=== PATIENT | female | born 1965 | race Asian ===

== ENCOUNTER → 2017-08-23 | Outpatient (CLI) | payer OTHER ==
--- NOTE | 2017-08-23 16:42 | KCIC ---
Bilateral digital screening mammogram History: Annual screening mammography Comparison: September 20, 2015 and August 15, 2014 Findings: Breast Tissue Density C : The breasts are heterogeneously dense, which may obscure small masses. Bilateral digital mammogram images are obtained with CAD. No suspicious masses, architectural distortion, or grouped microcalcifications are identified. Impression: Negative exam. Recommend screening mammography in one year. BI-RADS Category 1: Negative. PQRS compliance statement - Patient information was entered into a reminder system with a target due date for the next mammogram. Electronically signed by: Antionette Gibson MD (08/23/2017 4:39 PM) [facility]
== END | disposition home or self-care (01) ==
LOC: KCIC MAMMO 10:19
PROVIDERS: ATTEND Obstetrics & Gynecology
DX: Z12.31 Encounter for screening mammogram for malignant neoplasm of breast (principal)
CPT/HCPCS: G0202; 77067

== ENCOUNTER → 2017-11-03 | Outpatient (CLI) | payer OTHER | END | disposition home or self-care (01) | LOC: KCIC 14:31 | DX: M25.551 Pain in right hip (principal); G89.29 Other chronic pain | CPT/HCPCS: 73502 ==

== ENCOUNTER → 2017-11-26 | Outpatient (CLI) | payer OTHER | END | disposition home or self-care (01) | LOC: US 15:36 | DX: N30.00 Acute cystitis without hematuria (principal); N28.1 Cyst of kidney, acquired | CPT/HCPCS: 76770 ==

== ENCOUNTER → 2018-01-20 | Outpatient (CLI) | payer OTHER ==
[2018-01-20 15:31] LABS: BILIRUBIN,URINE NEGATIVE (NEG); CLARITY,URINE CLEAR; COLOR,URINE YELLOW; GLUCOSE,URINE NEGATIVE (NEG); NITRITE,URINE NEGATIVE (NEG); PROTEIN,URINE NEGATIVE (NEG-TRACE)
[2018-01-20 15:46] LABS: BACTERIA,URINE 0 /HPF (0-FEW); WBC,URINE OCC /HPF (0-4)
[2018-01-20 15:47] LABS: SQUAMOUS EPITHELIAL CELL,UR OCC /LPF
[2018-01-20 15:54] LABS: ADD MAN DIFF? NO
[2018-01-20 15:56] LABS: BASO # 0.1 x10^3/uL (0.0-0.2); BASO % 1 % (0-3); EOS # 0.5 x10^3/uL (0.0-0.7); EOS % 7 % (0-3); HEMATOCRIT 39.7 % (36.0-47.0); HEMOGLOBIN 13.5 g/dL (12.0-15.5); LYMPH # 1.5 x10^3/uL (1.0-4.8); LYMPH % 22 % (24-48); MEAN CORPUSCULAR HEMOGLOBIN 32 pg (25-35); MEAN CORPUSCULAR HGB CONC 34 g/dL (31-37); MEAN CORPUSCULAR VOLUME 94 fL (79-100); MONO # 0.6 x10^3/uL (0.0-1.1); MONO % 8 % (0-9); NEUT # 4.4 x10^3uL (1.8-7.7); NEUT % 62 % (31-73); PLATELET COUNT 367 x10^3/uL (140-400); RED CELL DISTRIBUTION WIDTH 13.9 % (11.5-14.5)
[2018-01-20 16:24] LABS: ALBUMIN 3.1 g/dL (3.4-5.0); ALBUMIN/GLOBULIN RATIO 0.7 (1.0-1.7); ALK PHOS 73 U/L (46-116); ALT (SGPT) 32 U/L (14-59); ANION GAP 8 (6-14); AST (SGOT) 26 U/L (15-37); BLOOD UREA NITROGEN 17 mg/dL (7-20); BUN/CREATININE RATIO 19 (6-20); CALCIUM 8.5 mg/dL (8.5-10.1); CARBON DIOXIDE 26 mmol/L (21-32); CHLORIDE 106 mmol/L (98-107); CREATININE 0.9 mg/dL (0.6-1.0); GFR 66.3; GLUCOSE 84 mg/dL (70-99); POTASSIUM 3.8 mmol/L (3.5-5.1); SODIUM 140 mmol/L (136-145); TOTAL BILIRUBIN 0.4 mg/dL (0.2-1.0); TOTAL PROTEIN 7.6 g/dL (6.4-8.2)
== END | disposition home or self-care (01) ==
LOC: SURGPAT 14:35
DX: Z01.818 Encounter for other preprocedural examination (principal)
CPT/HCPCS: 36415; 71046; 80053; 81001; 85025; 93005

== ENCOUNTER 2018-01-26 05:56 | Observation (INO) | payer OTHER ==
[2018-01-26] MEDS ORDERED: ESTROGENS, CONJ VAGINAL CREAM 30GM TUBE. (06:10)
[2018-01-26] MEDS ORDERED: METHYLENE BLUE 1% 10 ML VIAL. (06:10)
[2018-01-26] MEDS ORDERED: DEXAMETHASONE SOD PHOS 20 MG/5 ML VIAL. (06:21)
[2018-01-26] MEDS ORDERED: ONDANSETRON PF 4 MG/2 ML VIAL. (06:21)
[2018-01-26] MEDS ORDERED: ROCURONIUM 50 MG/5 ML VIAL. (06:22)
[2018-01-26] MEDS ORDERED: LIDOCAINE 2% PF Vial for OR 5 ML VIAL. (06:22)
[2018-01-26] MEDS ORDERED: PROPOFOL 20 ML IV (06:22)
[2018-01-26] MEDS ORDERED: fentaNYL PF VIAL 100 MCG/2 ML VIAL ×2 (06:22→09:12)
[2018-01-26] MEDS: IV RINGERS,LACTATED 1000ML 1,000 ML IV (06:33)
[2018-01-26 06:39] LABS: NEG OBC UR NEG; POS OBC UR POS; U PREG PATIENT NEGATIVE (NEG)
[2018-01-26] MEDS ORDERED: LIDOCAINE 1% PF 2 ML VIAL. ID (07:00)
[2018-01-26] MEDS ORDERED: HYDROmorphone 2 MG/ML VIAL IV (07:00)
[2018-01-26] MEDS ORDERED: MORPHINE SULFATE 4 MG/ML DISP.SYRIN. IV ×2 (07:00→09:30)
[2018-01-26] MEDS ORDERED: ONDANSETRON PF 4 MG/2 ML VIAL. IV ×2 (07:00→09:30)
[2018-01-26] MEDS ORDERED: fentaNYL PF VIAL 100 MCG/2 ML VIAL IV (07:00)
[2018-01-26] MEDS ORDERED: MIDAZOLAM HCL/PF 2 MG/2 ML VIAL. (07:17)
[2018-01-26] MEDS ORDERED: GLYCOPYRROLATE 1 MG/5 ML VIAL. (07:56)
[2018-01-26] MEDS: BUPIVACAINE-EPI 0.25%-1:200000 50 ML VIAL. (07:57)
[2018-01-26] MEDS ORDERED: ceFAZolin 2GM PREMIX 2 GM/50 ML BAG IV (08:00)
[2018-01-26] MEDS ORDERED: NEOSTIGMINE METHYLSULFATE 5 MG/5 ML SYRINGE. (08:12)
[2018-01-26] MEDS ORDERED: PHENYLEPHRINE in 0.9% NACL PF 1 MG/10 ML SYRINGE. IV (08:12)
[2018-01-26] MEDS ORDERED: ePHEDrine PF IN SALINE 50 MG/5 ML DISP.SYRIN IV (08:27)
[2018-01-26] MEDS ORDERED: SEVOFLURANE 61 TO 120 MINUTES. IH (08:31)
[2018-01-26] MEDS ORDERED: KETOROLAC 30 MG/ML INJ FOR OR. INJ (08:31)
[2018-01-26] MEDS ORDERED: SIMETHICONE 80 MG TAB.CHEW PO (09:30)
[2018-01-26] MEDS ORDERED: MAGNESIUM HYDROXIDE 2,400 MG/30 ML ORAL.SUSP. PO (09:30)
[2018-01-26] MEDS ORDERED: HYDROcodone/APAP 5/325MG 1 TAB TABLET PO (09:30)
[2018-01-26] MEDS ORDERED: diphenhydrAMINE 50 MG/ML VIAL IV (09:30)
[2018-01-26] MEDS ORDERED: CALCIUM CARBONATE 500 MG TAB.CHEW PO (09:30)
[2018-01-26] MEDS ORDERED: ZOLPIDEM 5 MG TABLET. PO (09:30)
[2018-01-26] MEDS ORDERED: NALOXONE 0.4 MG/ML VIAL. IV (09:30)
[2018-01-26] MEDS ORDERED: oxyCODONE/APAP 5/325 1 TAB TABLET PO (09:30)
[2018-01-26] MEDS ORDERED: diphenhydrAMINE HCL 25 MG CAPSULE PO (09:30)
[2018-01-26] MEDS ORDERED: KETOROLAC 30 MG/ML INJ. IV (09:30)
[2018-01-26] MEDS ORDERED: LACTULOSE 20 GM/30 ML SOLUTION. PO (09:30)
[2018-01-26] MEDS ORDERED: 0.9 % SODIUM CHLORIDE 10 ML DISP.SYRIN. IV (09:30)
[2018-01-26] MEDS ORDERED: MAG HYDROX/ALUMINUM HYD/SIMETH 30 ML ORAL.SUSP PO (09:30)
[2018-01-26] MEDS: PROCHLORPERAZINE 10 MG/2 ML VIAL. IV (10:02)
[2018-01-26] MEDS: fentaNYL PF VIAL 100 MCG/2 ML VIAL IV (10:02)
[2018-01-27 06:13] LABS: HEMATOCRIT 34.2 % (36.0-47.0)
[2018-01-27 06:16] LABS: ANION GAP 7 (6-14); BLOOD UREA NITROGEN 11 mg/dL (7-20); CALCIUM 7.8 mg/dL (8.5-10.1); CARBON DIOXIDE 25 mmol/L (21-32); CHLORIDE 110 mmol/L (98-107); CREATININE 0.9 mg/dL (0.6-1.0); GFR 66.3; GLUCOSE 100 mg/dL (70-99); POTASSIUM 3.9 mmol/L (3.5-5.1); SODIUM 142 mmol/L (136-145)
== END 2018-01-27 11:28 | disposition home or self-care (01) ==
LOC: SURG 05:56 → 3 NORTH 09:30
DX: D25.9 Leiomyoma of uterus, unspecified (principal); N85.4 Malposition of uterus; N92.0 Excessive and frequent menstruation with regular cycle; N94.6 Dysmenorrhea, unspecified
CPT/HCPCS: 36415; 80048; 81025; 85014; 86850; 86900; 86901; 88307; A7015; G0378; G0379; J0690; J0780; J1100; J1885; J2250; J2370; J2405; J2704; J2710; J3010; J3490; J7030; J7120; Q9968

== ENCOUNTER → 2018-05-16 | Outpatient (CLI) | payer OTHER ==
[2018-01-27 11:21] VITALS: BP 109/69
[~2018-05-16] MED LIST: CELE200C PO; CYCL5TAB PO
--- NOTE | 2018-05-16 16:02 | KCIC ---
EXAM: PA and lateral views of the chest DATE: 05/16/2018 12:00 AM INDICATION: PNEUMONIA, COUGH, SOA 10 DAYS, FEVER LAST WEEK COMPARISON: 01/20/2018 FINDINGS: The heart is not enlarged. Mediastinal and hilar contours are normal. No focal parenchymal airspace opacity. No pleural effusion or pneumothorax. IMPRESSION: 1. No radiographic evidence for acute cardiopulmonary process. Electronically signed by: Jovi Forrest MD (05/16/2018 3:58 PM) [facility]
== END | disposition home or self-care (01) ==
LOC: KCIC 12:34
PROVIDERS: ATTEND Internal Medicine
DX: J18.9 Pneumonia, unspecified organism (principal); R05 Cough; R50.9 Fever, unspecified
CPT/HCPCS: 71046

== ENCOUNTER → 2018-08-30 | Outpatient (CLI) | payer OTHER ==
[2018-01-27 11:21] VITALS: BP 109/69
--- NOTE | 2018-08-30 13:18 | KCIC ---
Bilateral digital screening mammograms: Reason for examination: Routine screening. Comparison is made to previous studies dated 08/23/2017 and 09/20/2015. Interpretation was made with the benefit of CAD. The skin and nipples show no abnormalities. No abnormal axillary lymph nodes are seen. The breast parenchyma is extremely dense. (Breast density: Category D.) There are no dominant masses, suspicious calcifications or architectural distortion. Impression: No evidence of malignancy. Recommend routine screening. Your patient's mammogram demonstrates that she has dense breast tissue (breast density category C or D), which could hide abnormalities, and if she has other risk factors for breast cancer that have been identified, she might benefit from supplemental screening tests that may be suggested by you as her ordering physician. Dense breast tissue, in and of itself, is a relatively common condition. Therefore, this information is not provided to cause undue concern, but rather to raise your awareness and to promote discussion with your patient regarding the presence of other risk factors, in addition to dense breast tissue. Your patient's mammography results will be sent to her. BI-RAD Category 1: Negative. "Our facility is accredited by the [employer] Mammography [employer]." This patient's information has been entered into a reminder system for the patient to be notified with the results of her examination and a target date for the next mammogram. Electronically signed by: Jenifer Mendoza MD (08/30/2018 1:14 PM) [facility]
== END | disposition home or self-care (01) ==
LOC: KCIC MAMMO 10:11
PROVIDERS: ATTEND Obstetrics & Gynecology
DX: Z12.31 Encounter for screening mammogram for malignant neoplasm of breast (principal)
CPT/HCPCS: 77067

== ENCOUNTER → 2019-05-16 | Outpatient (CLI) | payer OTHER ==
[2018-01-27 11:21] VITALS: BP 109/69
--- NOTE | 2019-05-18 11:07 | PATHOLOGY ---
[facility] Accession Number: [id number] . 01 Material submitted: . breast - RIGHT BREAST MASS, 8:30, 9 CMFN. Modifiers: right . 01 Clinical history: . Right breast mass . 02 Diagnosis: Breast tissue, right breast mass 8:30 needle biopsies: - INVASIVE DUCTAL CARCINOMA, HIGH GRADE. SEE COMMENT. (JPM:lamination machine operator; 05/17/2019) MBR/05/18/2019 . 02 Comment: Sections of the right breast mass at 8:30 needle biopsies reveal an invasive mammary carcinoma. The tumor cells are present in small and larger irregular solid nests which infiltrate a reactive desmoplastic stroma. The tumor shows little tubule formation. The tumor cells show marked nuclear pleomorphism. Mitotic figures are readily demonstrated. There are a few tumor associated calcifications. There is no lymphovascular tumor invasion. The invasive carcinoma measures up to 1.2 cm in greatest dimension on the glass slide. The morphologic findings are supportive of the diagnosis of invasive high grade ductal carcinoma. The case is also examined by Dr. Michaels, who concurs with the diagnosis. Breast prognostic studies will be obtained on block A2, the results of which will be reported separately. (JPM:lamination machine operator; 05/17/2019) . 02 Electronically signed: . Waldo Aragon MD, Pathologist NPI- [id number] . 01 Gross description: . The specimen is received in formalin, labeled "Hailey Durham, right breast 8:30 9 cm from nipple". Received are multiple needle cores of fibrofatty tissue measuring 1.4 x 1.0 x 0.2 cm in aggregate dimensions. The specimen is submitted entirely in cassettes A1 through A3. The cold ischemic time is 7 minutes. The total formalin fixation time is 12 hours and 18 minutes. (CAA; 05/16/2019) QAC/QAC . 02 Pathologist provided ICD-10: C50.911 . 02 CPT . 797966 Specimen Comment: A courtesy copy of this report has been sent to Specimen Comment: [phone], , . Specimen Comment: Report sent to ,DR GUTIERREZ / DR LAN Performed at: 01 [facility] [address] [facility] [address] [address], [place] [id number] MD Kaveh Bruner MD Phone: [phone] Performed at: 02 [facility] [address] [place], [place] [id number] MD Waldo Aragon MD Phone: [phone]
--- NOTE | 2019-05-18 17:53 | RAD ---
CLINICAL INDICATION: RT BREAST MASS/post sono biopsy PRE-PROCEDURAL CONSULTATION: Details of the procedure and possible limitations and complications were discussed with the patient. After addressing her questions and concerns, written informed consent was obtained. A time out was then taken to verify patient's name and date of as well as site and laterality. PROCEDURE: The mass at the 8:30 o'clock position within the right breast was targeted under ultrasound. The skin of the right breast was cleansed and prepped in the typical sterile fashion. 8 cc of 1% lidocaine was used for local anesthesia. A small skin incision was then made to permit passage of a spring loaded biopsy device. 5 core specimens were obtained, although the fourth specimen was fragmented and small. A clip was then deployed at the biopsy site. Hemostasis was achieved. The patient tolerated the procedure well with no immediate complications. Post-procedural digital mammographic imaging of the right breast demonstrate the clip in appropriate position. IMPRESSION: Successful ultrasound guided core needle biopsy of a mass at the 8:30 o'clock position within the right breast. Pathology is pending.
== END | disposition home or self-care (01) ==
LOC: US 08:03
PROVIDERS: ATTEND Radiology Diagnostic Radiology
DX: C50.911 Malignant neoplasm of unspecified site of right female breast (principal)
CPT/HCPCS: 19083; 77065; 88305; 88361; C1713; 19081; 76942

== ENCOUNTER → 2019-06-14 | Day surgery (SDC) | payer OTHER ==
[~2019-06-14] VITALS: Ht 154.9 cm; Wt 56.0 kg
[~2019-06-14] MED LIST changes: +BUPIVACAINE MPF 0.5% 30 ML VIAL. ONE; +BUPIVACAINE-EPI 0.5%-1:200000 MPF 30 ML VIAL. INJ ONE; +DEXAMETHASONE SOD PHOS 4 MG/ML VIAL ONE; +HEPARIN SODIUM 5,000 UNIT in IV NORMAL SALINE 500ML BAG 500 ML IRR ONE; +HYDR-3164 PO; +HYDROcodone/APAP 5/325MG 1 TAB TABLET PO ONE; +IV RINGERS,LACTATED 1000ML 1,000 ML IV SCH; +LIDOCAINE 2% PF 5 ML VIAL. ONE; +NEOMY/BACITR/POLYMYXIN OINT PACKET. TP ONE; +ONDANSETRON PF 4 MG/2 ML VIAL. ONE; +PROPOFOL 20 ML IV ONE; +SEVOFLURANE 16 TO 30 MINUTES. IH ONE; +fentaNYL PF VIAL 100 MCG/2 ML VIAL ONE
--- NOTE | 2019-06-14 10:12 | DISCH ---
DISCHARGE INSTRUCTIONS Condition on Discharge Condition on Discharge: Stable Activity After Discharge Activity Instructions for Disc: Activity as tolerated, Avoid exertion Lifting Instructions after Dis: No heavy lifting (more than ten pounds for the next week) Driving Instructions after Dis: Do not drive today Wound Incision Care Wound/Incision Care: Ice to area for comfort Follow-Up Follow up with: Dre ten BAN Franklin MD Jun 14, 2019 10:12
--- NOTE | 2019-06-14 10:17 | PDOC ---
BRIEF OPERATIVE NOTE Date: Jun 14, 2019 Pre-Op Diagnosis invasive carcinoma right breast Post-Op Diagnosis same Procedure Performed placement left subclavian power port Surgeon Dre Anesthesia Type: General Blood Loss 5cc IV Fluid 600cc Specimens Obtained none Findings post op CXR shows the tip of the catheter in the SVC without evidence of pneumothorax Complications none Operative Note Wk # [id number] BAN SETHI MD Jun 14, 2019 10:17
--- NOTE | 2019-06-14 10:37 | OP ---
DATE OF SURGERY: 06/14/2019 PREOPERATIVE DIAGNOSIS: Invasive carcinoma, right breast. POSTOPERATIVE DIAGNOSIS: Invasive carcinoma, right breast. PROCEDURE: Placement of left subclavian PowerPort. SURGEON: Vinnie Sethi MD ANESTHESIA: General LMA. ESTIMATED BLOOD LOSS: 5 mL. INTRAVENOUS FLUIDS: 600 mL. DESCRIPTION OF PROCEDURE: The patient brought to the operating suite, given a general LMA and the infraclavicular areas were prepped and draped in usual sterile fashion. With the bed in Trendelenburg, the left side was approached and 0.5% plain Marcaine infiltrated a fingerbreadth below the clavicle at the junction medial two-thirds and lateral third. Small incision was made and the Cook needle was used to access the subclavian vein. Flexible guidewire advanced under fluoroscopic observation into the superior vena cava. Table returned to level. Pocket incision infiltrated with local anesthetic, incised, pocket developed. Catheter laid on the patient's chest, and with fluoroscopy as a guide, cut to an appropriate length. Catheter was then tunneled from the insertion site to the pocket site where it was attached to the reservoir. The reservoir was seated into the pocket, and with the table back in Trendelenburg, under fluoroscopic observation, the dilator and sheath were passed over the wire, the wire was removed, the dilator was removed, the catheter was threaded through the sheath and the sheath was then removed. There was good flow into and out of the catheter at the completion of placement. Incisions closed with 3-0 Vicryl in subcutaneous tissue, subcuticular 4-0 Monocryl and Steri-Strips for the skin. At completion, the port irrigated and aspirated easily. Sterile dressing applied. Postop upright chest x-ray showed the tip of the catheter to reside in superior vena cava without evidence of a pneumothorax. The patient was taken to the postoperative area in stable condition. VINNIE SETHI MD DR: TAI/ade JOB#: [id number] / [id number] RONY Rosario MD
[2019-06-14 11:10] VITALS: BP 136/79
--- NOTE | 2019-06-14 11:45 | RAD ---
Single view of the chest. 06/14/2019 12:00 AM Indication: Status post port placement Comparison: Chest radiograph May 16, 2018. Findings: There is a left subclavian port with tip at the cavoatrial junction. Lungs are clear. Heart size is normal. Bony thorax is grossly intact. IMPRESSION: Left subclavian port with tip at the cavoatrial junction. Otherwise normal chest. Electronically signed by: Ross Baker MD (06/14/2019 11:42 AM) [facility]
== END ==
LOC: SURG 08:27
PROVIDERS: ATTEND Surgery
DX: Z45.2 Encounter for adjustment and management of vascular access device (principal); C50.911 Malignant neoplasm of unspecified site of right female breast; Z98.890 Other specified postprocedural states; Z90.710 Acquired absence of both cervix and uterus
CPT/HCPCS: 36561; 71045; 77001; A7015; C1788; J0690; J1100; J1644; J2001; J2405; J2704; J3010; J3490; J7040; 36556

== ENCOUNTER → 2019-10-31 | Outpatient (CLI) | payer OTHER ==
[2019-06-14 11:10] VITALS: BP 136/79
[~2019-10-31] MED LIST changes: -BUPIVACAINE MPF 0.5% 30 ML VIAL. ONE; -BUPIVACAINE-EPI 0.5%-1:200000 MPF 30 ML VIAL. INJ ONE; -DEXAMETHASONE SOD PHOS 4 MG/ML VIAL ONE; -HEPARIN SODIUM 5,000 UNIT in IV NORMAL SALINE 500ML BAG 500 ML IRR ONE; -HYDROcodone/APAP 5/325MG 1 TAB TABLET PO ONE; -IV RINGERS,LACTATED 1000ML 1,000 ML IV SCH; -LIDOCAINE 2% PF 5 ML VIAL. ONE; -NEOMY/BACITR/POLYMYXIN OINT PACKET. TP ONE; -ONDANSETRON PF 4 MG/2 ML VIAL. ONE; -PROPOFOL 20 ML IV ONE; -SEVOFLURANE 16 TO 30 MINUTES. IH ONE; -fentaNYL PF VIAL 100 MCG/2 ML VIAL ONE
--- NOTE | 2019-10-31 16:23 | RAD ---
EXAM: CHEST 2 VIEWS. HISTORY: Cough and congestion, preoperative risk factors. COMPARISON: 06/14/2019. FINDINGS: Frontal and lateral views of the chest are obtained. A left-sided port catheter has its tip in the junction of the brachiocephalic veins. There are no confluent infiltrates. There is no pneumothorax or pleural effusion. The heart is not enlarged. IMPRESSION: 1. No confluent infiltrates. Electronically signed by: Hue Meyer MD (10/31/2019 4:20 PM) [facility]
== END | disposition home or self-care (01) ==
LOC: RAD 13:18
PROVIDERS: ATTEND Surgery
DX: Z01.818 Encounter for other preprocedural examination (principal); R09.89 Other specified symptoms and signs involving the circulatory and respiratory systems; R05 Cough
CPT/HCPCS: 71046

== ENCOUNTER → 2019-11-03 | Outpatient (CLI) | payer OTHER ==
[2019-06-14 11:10] VITALS: BP 136/79
[~2019-11-03] MED LIST changes: +BUDE10.2 IH; +LEVO500T59 PO; +MONT10TA49 PO
--- NOTE | 2019-11-06 11:58 | CARD ---
MR#: [id number] Date of Study: 11/03/2019 Ordering Physician: RONY LILLY, Referring Physician: RONY LILLY, Tech: Antionette Franco APPROVED REPORT EXAM: Two-dimensional and M-mode echocardiogram with Doppler and color Doppler. Other Information Quality : AverageHR: 77bpm INDICATION Pre-Op 2D DIMENSIONS RVDd2.8 (2.9-3.5cm)Left Atrium(2D)2.6 (1.6-4.0cm) IVSd0.9 (0.7-1.1cm)Aortic Root(2D)3.2 (2.0-3.7cm) LVDd4.0 (3.9-5.9cm)LVOT Diameter1.9 (1.8-2.4cm) PWd0.9 (0.7-1.1cm)LVDs2.8 (2.5-4.0cm) FS (%) 29.1 %SV39.7 ml LVEF(%)56.5 (>50%) Aortic Valve AoV Peak Kenny.107.8cm/sAoV VTI22.8cm AO Peak GR.4.6mmHgLVOT Peak Kenny.68.4cm/s LVOT VTI 14.14cmAO Mean GR.3mmHg JANINE (VMAX)1.96su2FXB (VTI)1.78cm2 Mitral Valve MV E Txksazqz36.8cm/sMV DECEL DFJH333jg MV A Gypywmra99.8cm/sMV E Mean Gr.2mmHg MV YFF63crG/A Ratio1.4 MVA (PHT)3.92cm2 TDI E/Lateral E'6.5E/Medial E'8.1 Pulmonary Valve PV Peak Rqihwsfa01.7cm/sPV Peak Grad.2mmHg Tricuspid Valve TR P. Tvdgexqq050mh/sRAP PFVSHZBP9ogZh TR Peak Gr.74llGeUUID22muTr Pulmonary Vein S1 Axpvxyhc95.9cm/sD2 Uvsgpohx99.1cm/s PVa qthpgire476snaf LEFT VENTRICLE The left ventricle is normal size. There is normal left ventricular wall thickness. The left ventricu lar systolic function is at the lower limits of normal. The Ejection Fraction is 50%. There is normal LV segmental wall motion. Transmitral Doppler flow pattern is Grade II-pseudonormal filling dynamics . RIGHT VENTRICLE The right ventricle is normal size. There is normal right ventricular wall thickness. The right ventr icular systolic function is normal. ATRIA The left atrium size is normal. The right atrium size is normal. The interatrial septum is intact wit h no evidence for an atrial septal defect or patent foramen ovale as noted on 2-D or Doppler imaging. AORTIC VALVE The aortic valve is normal in structure and function. Doppler and Color Flow revealed no significant aortic regurgitation. There is no significant aortic valvular stenosis. MITRAL VALVE The mitral valve is thickened but opens well. There is no evidence of mitral valve prolapse. There is no mitral valve stenosis. Doppler and Color-flow revealed trace mitral regurgitation. TRICUSPID VALVE The tricuspid valve is normal in structure and function. Doppler and Color Flow revealed trace tricus pid regurgitation with an estimated PAP of 21 mmHg. There is no tricuspid valve stenosis. PULMONIC VALVE Doppler and Color Flow revealed trace pulmonic valvular regurgitation. There is no pulmonic valvular stenosis. GREAT VESSELS The aortic root is normal in size. The ascending aorta is normal in size. The IVC is normal in size a nd collapses >50% with inspiration. PERICARDIAL EFFUSION There is no evidence of significant pericardial effusion. Critical Notification Critical Value: No <Conclusion> The left ventricular systolic function is at the lower limits of normal. The Ejection Fraction is 50% . There is normal LV segmental wall motion. Signed by : Paxton Ernst, Electronically Approved : 11/03/2019 13:06:53
== END | disposition home or self-care (01) ==
LOC: ECHO 07:45
PROVIDERS: ATTEND Internal Medicine Hematology & Oncology
DX: R06.2 Wheezing (principal)
CPT/HCPCS: 93306

== ENCOUNTER → 2019-11-03 | Outpatient (CLI) | payer OTHER ==
[2019-06-14 11:10] VITALS: BP 136/79
--- NOTE | 2019-11-03 10:38 | KCIC ---
Bilateral lower extremity venous doppler ultrasound History: Bilateral leg pain Comparison: None Findings: Multiple grayscale, color, and duplex spectral analysis sonographic images were acquired of the bilateral lower extremity veins to evaluate for the presence of DVT. There is normal phasicity. Normal compression, color-flow, and augmentation is demonstrated from the bilateral common femoral to the popliteal veins. There is normal color flow of the proximal greater saphenous and profunda femoris veins. There is normal color flow of segments of the calf veins. Impression: 1. There is no evidence of deep venous thrombosis from the bilateral common femoral to the popliteal veins. Electronically signed by: Diego Orr MD (11/03/2019 10:35 AM) [facility]
== END | disposition home or self-care (01) ==
LOC: KCIC US 09:47
PROVIDERS: ATTEND Internal Medicine Hematology & Oncology
DX: M79.604 Pain in right leg (principal); M79.605 Pain in left leg
CPT/HCPCS: 93970

== ENCOUNTER 2019-11-06 06:49 | Day surgery (SDC) | payer OTHER ==
[~2019-11-06] VITALS: Ht 154.9 cm; Wt 51.5 kg
[~2019-11-06 06:49] MED LIST changes: -BUDE10.2 IH; -LEVO500T59 PO; -MONT10TA49 PO; +ceFAZolin SODIUM IV Push 1 GM VIAL. IVP PRN
[2019-11-06] MEDS ORDERED: LIDOCAINE 1% PF 2 ML VIAL. ID PRN (07:00)
[2019-11-06] MEDS ORDERED: MORPHINE SULFATE 2 MG/ML VIAL. IV PRN (07:00)
[2019-11-06] MEDS ORDERED: fentaNYL PF VIAL 100 MCG/2 ML VIAL IV PRN ×2 (07:00)
[2019-11-06] MEDS ORDERED: HYDROmorphone 2 MG/ML VIAL IV PRN (07:00)
[2019-11-06] MEDS ORDERED: ONDANSETRON PF 4 MG/2 ML VIAL. IV PRN (07:00)
[2019-11-06] MEDS ORDERED: IV RINGERS,LACTATED 1000ML 1,000 ML IV SCH (07:00)
[2019-11-06] MEDS ORDERED: PROCHLORPERAZINE 10 MG/2 ML VIAL. IV PRN (07:00)
[2019-11-06] MEDS ORDERED: MONT10TA49 PO (07:18)
[2019-11-06] MEDS ORDERED: LEVO500T59 PO (07:18)
[2019-11-06] MEDS ORDERED: BUDE10.2 IH (07:18)
[2019-11-06] MEDS ORDERED: HEPARIN PF 500 UNIT/5 ML DISP.SYRIN. ONE (07:41)
[2019-11-06] MEDS ORDERED: HEPARIN PF 500 UNIT/5 ML DISP.SYRIN. IVP ONE (07:45)
[2019-11-06] MEDS ORDERED: DEXAMETHASONE SOD PHOS 4 MG/ML VIAL ONE (08:53)
[2019-11-06] MEDS ORDERED: PROPOFOL 20 ML IV ONE (08:53)
[2019-11-06] MEDS ORDERED: fentaNYL PF VIAL 100 MCG/2 ML VIAL ONE ×2 (08:53→10:40)
[2019-11-06] MEDS ORDERED: LIDOCAINE 2% PF 5 ML VIAL. ONE (08:53)
[2019-11-06] MEDS ORDERED: ONDANSETRON PF 4 MG/2 ML VIAL. ONE (08:53)
[2019-11-06] MEDS ORDERED: ISOSULFAN BLUE 1% 50 MG/5 ML VIAL. SQ ONE ×2 (09:26→09:39)
[2019-11-06] MEDS ORDERED: BUPIVACAINE-EPI 0.5%-1:200000 MPF 30 ML VIAL. ONE (09:26)
[2019-11-06] MEDS ORDERED: BUPIVACAINE MPF 0.5% 30 ML VIAL. ONE (09:26)
[2019-11-06] MEDS ORDERED: SEVOFLURANE 61 TO 120 MINUTES. IH ONE (10:37)
[2019-11-06] MEDS ORDERED: PHENYLEPHRINE in 0.9% NACL PF 1 MG/10 ML SYRINGE. IV ONE (10:53)
[2019-11-06] MEDS ORDERED: ePHEDrine PF IN SALINE 50 MG/10 ML SYRINGE. IV ONE (10:53)
[2019-11-06] MEDS ORDERED: HYDR-3164 PO (11:16)
--- NOTE | 2019-11-06 11:20 | PDOC ---
BRIEF OPERATIVE NOTE Date: Nov 06, 2019 Pre-Op Diagnosis invasive carcinoma right breast s/p gabino adjuvant chemotherapy Post-Op Diagnosis same Procedure Performed right sentinel lymph node biopsy right segmental mastectomy Surgeon Dre MIRELES Anesthesia Type: General Blood Loss 10cc IV Fluid 550cc Specimens Obtained right axillary LN, "hot" and blue right breast mass with needle localization Findings specimen contained loc wire and clip Complications none BAN SETHI MD Nov 06, 2019 11:20
[2019-11-06] MEDS ORDERED: HYDROcodone/APAP 5/325MG 1 TAB TABLET ONE (11:56)
[2019-11-06] MEDS ORDERED: HYDROcodone/APAP 5/325MG 1 TAB TABLET PO ONE (12:00)
--- NOTE | 2019-11-06 12:15 | DISCH ---
DISCHARGE INSTRUCTIONS Condition on Discharge Condition on Discharge: Stable Activity After Discharge Activity Instructions for Disc: Activity as tolerated, Avoid exertion Lifting Instructions after Dis: No heavy lifting Driving Instructions after Dis: Do not drive today Diet after Discharge Diet after Discharge: Regular Wound Incision Care Wound/Incision Care: Ice to area for comfort Other wound/incision instructi: february shower Wednesday Follow-Up Follow up with: call office Wednesday with ISIAH output BAN SETHI MD Nov 06, 2019 12:15
[2019-11-06 12:20] VITALS: BP 126/67
--- NOTE | 2019-11-06 18:54 | RAD ---
Examination: 1. Ultrasound-guided right breast needle localization. 2. Right breast radiopharmaceutical injection for sentinel lymph node mapping. 3. Right postprocedure diagnostic mammogram. 4. Surgical specimen radiograph. INDICATION: 54-year-old woman status post neoadjuvant chemotherapy for biopsy-proven invasive right breast cancer. TECHNIQUE AND FINDINGS: Informed consent was obtained and an appropriate procedure pause was observed. Using ultrasound guidance, standard sterile technique and local anesthesia, a 5 cm needle was advanced through the residual mass adjacent to the biopsy marker and hook wire threaded through the needle. The postprocedure mammogram showed satisfactory positioning of the hook wire relative to the biopsy marker in otherwise heterogeneously dense breast tissue. Thereafter, in 3 separate hypodermal periareolar injections, a total of 0.5 mCi of Lymphoseek radiopharmaceutical were injected at approximately 9:00 AM and the wheals were massaged. The puncture sites were dressed and the patient released from imaging suite in stable condition to follow up with her surgeon. Later the same day, a radiograph of the surgical specimen was obtained and shows that the S shaped biopsy marker overlies the grid at the 5H spot with the localizing wire overlapping it. Although the residual mass is difficult to see in the tissue specimen, the surgical margins around the biopsy marker appear satisfactory. IMPRESSION: 1. Successful right breast needle localization (under ultrasound guidance) of a biopsy-proven malignant mass in the lateral right breast and right breast radiopharmaceutical injection for sentinel node mapping. 2. Surgical specimen radiograph contains the hook wire and biopsy marker at the 5H location. Electronically signed by: Asya Franklin MD (11/06/2019 6:51 PM) [facility]
--- NOTE | 2019-11-06 19:46 | OP ---
DATE OF SURGERY: 11/06/2019 PREOPERATIVE DIAGNOSIS: Invasive carcinoma, right breast, status post neoadjuvant chemotherapy. POSTOPERATIVE DIAGNOSIS: Invasive carcinoma, right breast, status post neoadjuvant chemotherapy. PROCEDURE: Right sentinel lymph node biopsy and right segmental mastectomy. SURGEON: Vinnie Sethi MD WRAPPER STEMMER HAND: CHI Hedrick ANESTHESIA: General LMA. ESTIMATED BLOOD LOSS: 10 mL. INTRAVENOUS FLUIDS: 550 mL. OPERATIVE REPORT: The patient was taken to the mammography suite where the previously placed biopsy marker was localized with a needle. She was also injected for sentinel node identification. Brought to the OR, given a general anesthetic and the right breast and axilla were prepped and draped in the usual sterile fashion. A 4 mL of Lymphazurin was injected intradermally circumareolarly from 6-9 o'clock and the breast gently massaged for 4 minutes. Axillary incision was infiltrated with local anesthetic, incised and dissection carried down to a "hot" blue lymph node, which was harvested and sent for frozen section. A curvilinear incision in the lower outer quadrant of the breast was infiltrated with local anesthetic, incised. The localization wire was delivered into the wound and the tissue around the wire corresponding to the area of concern was excised. A second specimen inferomedial to the original was also harvested. Specimen sent to Radiology where a specimen radiograph confirmed the presence of the marker and guidewire. Intraoperative report from pathology showed the sentinel node to be negative. When a correct sponge count was obtained, a 15-Kazakh round Elias drain was left in the right axilla, secured to the skin with a silk stitch and the incision closed with subcuticular Monocryl. Breast tissue was approximated with 3-0 Vicryl, skin closed with a subcuticular 4-0 Monocryl. Steri-Strips and sterile dressings applied. The patient awakened from her anesthetic and taken to the recovery room in satisfactory condition. VINNIE SETHI MD DR: TAI/ade JOB#: [id number] / [id number]
--- NOTE | 2019-11-10 16:06 | PATHOLOGY ---
[facility] Accession Number: [id number] . 01 Material submitted: . PART A: lymph node - RIGHT AXILLARY SENTINEL NODE - FS. Modifiers: right, axillary tail PART B: breast - RIGHT BREAST MASS WITH NEEDLE LOCALIZATION. Modifiers: right PART C: breast - BREAST TISSUE INFERIOR TO RIGHT BREAST MASS WITH NEEDLE LOCALIZATON. Modifiers: right . 01 Clinical history: . Invasive . 02 Frozen section diagnosis: . INTRAOPERATIVE CONSULTATION WITH FROZEN SECTION DIAGNOSIS: FSA1. Right axillary sentinel node, hot and blue: - Negative for tumor. ([facility] 11[facility]) . The results are reported to Dr. Erickson in the operating room. . FROZEN SECTION GROSS DESCRIPTION: A. Received fresh for intraoperative consultation is the "right axillary sentinel node (hot and blue)". This consists of a segment of yellow-red fatty tissue showing focal bluish discoloration, measuring up to 1.8 x 1.2 x 1.0 cm. There is focal cautery change noted. The specimen is bisected and reveals a yellow fatty cut surface with focal firm areas on palpation. All is submitted for frozen section as FSA1. The tissue remaining from frozen section is submitted for permanent sections as A1. ([facility] 11/[facility]) . Frozen section performed at [facility], [address] [place] [address], [place] [address]. ANGEL LUIS/HUGO . 02 Diagnosis: A. Lymph node and fibroadipose tissue, right axillary sentinel node hot and blue: - Negative for tumor. . B. Breast tissue, wire localized right breast lumpectomy: - FOCAL RESIDUAL INVASIVE HIGH GRADE DUCTAL CARCINOMA AND FOCAL SOLID TYPE HIGH GRADE DUCTAL CARCINOMA IN SITU, MEASURING UP TO 0.5 CM IN GREATEST DIMENSION. - Invasive carcinoma is approximately 0.3 cm from the closest inked margin of resection. - Fibrocystic changes. - Fibroadenomatous changes. - Sclerosing adenosis, focal. - Small fibroadenoma. . C. Segments of breast and focal attached skeletal muscle tissue, breast tissue inferior to right breast mass: - Stromal fibrosis and mild duct ectasia, focal - negative for tumor. . (JPM:sugey; 11/09/2019) S 11/09/2019 1001 Local . 02 Comment: The sentinel lymph node is examined at multiple levels. An immunoperoxidase stain for AE1/AE3 is also obtained on block A1 and yields the following results: . AE1/AE3 (A1): Negative for tumor. . . There is no morphologic or immunophenotypic evidence of metastatic carcinoma. (JPM:sugey; 11/09/2019) . . . 02 Electronically signed: . Waldo Aragon MD, Pathologist NPI- [id number] . 01 Gross description: . A. SEE FROZEN SECTION FOR GROSS DESCRIPTION ON SPECIMEN A. . B. The specimen is received in formalin, labeled "Hailey Durham, right breast mass with needle localization" and consists of an unoriented 18 g lumpectomy specimen with a metal localization wire protruding from one aspect measuring 5.0 x 5.0 x 1.5 cm. This aspect/margin will be inked yellow and the rest of the specimen black. The specimen is sectioned revealing fibrotic cut surfaces with a possible mass measuring 1.3 x 0.9 cm that is 0.1 cm from the inked surface. The mass shows central previous biopsy changes. No additional discrete mass lesions are identified. The specimen is entirely submitted in B1-B14. . The specimen was obtained at 10:42 AM on 11/06/2019 and placed in formalin at 11:10 AM. The cold ischemic time is 28 minutes and the total formalin fixation time is greater than 6 hours but less than 72 hours. (SDY; 11/06/2019) . C. The specimen is received in formalin labeled, "Hailey Durham, inferior to first specimen". Received is a segment of hemorrhagic purple-yellow tissue measuring 2.2 x 1.6 x 1.3 cm. It is inked black and sectioned revealing hemorrhagic yellow lobulated cut surfaces with a possible arias-pink mass measuring 0.9 x 0.8 x 0.5 cm which abuts the surface. The specimen is entirely submitted in C1 and C2. Also received is an additional segment of yellow to pink lobulated tissue which is entirely submitted in C3. (JPM:sugey; 11/09/2019) SYU/SALOMÓNP 11/09/2019 0956 Local . 02 Microscopic: . . . 02 Pathologist provided ICD-10: C50.911, D05.11, N60.11, N60.21, N60.31, N60.41 . 02 CPT . 488852, 922513, 501734, 099659, [id number] Specimen Comment: A courtesy copy of this report has been sent to [phone], [phone] Specimen Comment: [id number] Specimen Comment: Report sent to / DR LAN Performed at: 01 [facility] [address] [facility] [address], [place] [id number] MD Kaveh Bruner MD Phone: [phone] Performed at: 02 [facility] [address] [place], [place] [id number] MD Waldo Aragon MD Phone: [phone]
== END 2019-11-06 11:54 | disposition home or self-care (01) ==
LOC: SURG 06:49
PROVIDERS: ATTEND Surgery
DX: C50.911 Malignant neoplasm of unspecified site of right female breast (principal); R59.1 Generalized enlarged lymph nodes; K21.9 Gastro-esophageal reflux disease without esophagitis; D64.9 Anemia, unspecified; E11.42 Type 2 diabetes mellitus with diabetic polyneuropathy; Z90.721 Acquired absence of ovaries, unilateral; Z79.899 Other long term (current) drug therapy; Z92.21 Personal history of antineoplastic chemotherapy; Z90.710 Acquired absence of both cervix and uterus; Z98.890 Other specified postprocedural states; Z80.3 Family history of malignant neoplasm of breast; Z82.3 Family history of stroke; Z79.84 Long term (current) use of oral hypoglycemic drugs
CPT/HCPCS: 19083; 19301; 38525; 38792; 77065; 88305; 88307; 88331; 88342; 96374; A7015; A9520; J0171; J0690; J1100; J2001; J2370; J2405; J2704; J3010; J3490; Q9968; 76098; 76942

== ENCOUNTER → 2019-12-01 | Outpatient (CLI) | payer OTHER ==
[2019-11-06 12:20] VITALS: BP 126/67
[~2019-12-01] MED LIST changes: +BUDE10.2 IH; +IOHEXOL 300 MG/ML 100ML VIAL. IV ONE; +LEVO500T59 PO; +MONT10TA49 PO; -ceFAZolin SODIUM IV Push 1 GM VIAL. IVP PRN
--- NOTE | 2019-12-01 10:23 | RAD ---
CT CHEST W/CONTRAST INDICATION: Breast cancer. Comparison: None. TECHNIQUE: Following the uneventful administration of intravenous contrast, 75 cc Omnipaque 300, axial CT sections were obtained through the lungs and upper abdomen. Multiplanar reconstructions were obtained. PQRS compliance statement: One or more of the following individualized dose reduction techniques were utilized for this examination: 1. Automated exposure control 2. Adjustment of the mA and/or kV according to patient size 3. Use of iterative reconstruction technique FINDINGS: Lungs and Airways: No pulmonary mass or consolidation. No abnormality of the central airways. Pleura: The pleural spaces are normal. Heart and Mediastinum: The visualized thyroid is normal in size and attenuation. No axillary or supraclavicular lymphadenopathy. No mediastinal, hilar or retrocrural lymphadenopathy. The heart and pericardium are within normal limits. The great vessels of the thorax are normal. Abdomen: Limited images through the upper abdomen show no abnormality of the visualized organs. Bones and Soft Tissues: Degenerative changes of the spine. No aggressive lytic or blastic osseous lesion. Left Port-A-Cath. IMPRESSION: No evidence of metastatic disease in the chest. Electronically signed by: Diego Marin MD (12/01/2019 10:20 AM) [id number]
== END | disposition home or self-care (01) ==
LOC: CT 10:03
PROVIDERS: ATTEND Internal Medicine Hematology & Oncology
DX: C50.511 Malignant neoplasm of lower-outer quadrant of right female breast (principal); M47.814 Spondylosis without myelopathy or radiculopathy, thoracic region; Z17.0 Estrogen receptor positive status [ER+]
CPT/HCPCS: 71260; Q9967

== ENCOUNTER → 2020-09-23 | Outpatient (CLI) | payer OTHER ==
[~2020-09-23] MED LIST changes: +CALC500T30 PO; +CHOL200078 PO; -IOHEXOL 300 MG/ML 100ML VIAL. IV ONE; +MULT-658 PO; +PERT420V IV; +TAMO20TA PO; +ZOLP5TAB PO
== END ==
LOC: LAB 08:09
PROVIDERS: ATTEND Surgery
DX: Z01.812 Encounter for preprocedural laboratory examination (principal); C50.919 Malignant neoplasm of unspecified site of unspecified female breast; Z20.828 Contact with and (suspected) exposure to other viral communicable diseases
CPT/HCPCS: U0003

== ENCOUNTER 2020-09-25 10:20 | Day surgery (SDC) | payer OTHER ==
[~2020-09-25] VITALS: Ht 154.9 cm; Wt 54.5 kg
[~2020-09-25 10:20] MED LIST changes: +BUPIVACAINE-EPI 0.5%-1:200000 MPF 30 ML VIAL. INJ ONE; +HYDROmorphone 2 MG/ML VIAL IV PRN; +IV RINGERS,LACTATED 1000ML 1,000 ML IV SCH; +MORPHINE SULFATE 2 MG/ML VIAL. IV PRN; +ONDANSETRON PF 4 MG/2 ML VIAL. IV PRN; +PROCHLORPERAZINE 10 MG/2 ML VIAL. IV PRN; +ceFAZolin SODIUM IV Push 1 GM VIAL. IVP PRN; +fentaNYL PF VIAL 100 MCG/2 ML VIAL IV PRN
[2020-09-25] MEDS ORDERED: fentaNYL PF VIAL 100 MCG/2 ML VIAL ONE (10:52)
--- NOTE | 2020-09-25 13:22 | PDOC4 ---
Operative Note Operative Note Operative Note: Preoperative Diagnosis: Breast cancer Postoperative Diagnosis: Same Procedure: Removal of Port-A-Cath Surgeon: Castro Coil Machine Supervisor: CHI Osorio Anesthesia: General EBL: 5 mL Specimen: Port-A-Cath to pathology Drains: None Complications: None Indication: The patient is a 55-year-old female with a history of breast cancer who completed adjuvant chemotherapy. A referral was made for removal of the Port-A-Cath. The details and risks of surgery were discussed with the patient. The risks include bleeding, infection, pain, scar tissue, potential need for additional surgery procedure. She understands and would like to proceed. Description: The patient was taken the operating room and placed supine in the operating table. General anesthesia was performed. The left upper chest was prepped with ChloraPrep and draped in a standard surgical manner. An incision was made at the site of the prior upper chest scar. Cautery dissection was used in the subcutaneous tissues. The capsule of the port was identified and opened with cautery. Some of the attaching scar tissue was lysed and the port was readily delivered. The catheter was retrieved without difficulty. The tract of the catheter was oversewn with 3-0 Vicryl. The port was then fully removed and sent to pathology. Hemostasis was achieved with cautery. The skin was approximated with 4-0 Monocryl and infiltrated with half percent Marcaine with epinephrine. Steri-Strips and a sterile dressing were applied. The patient tolerated procedure well and sent to the recovery room in stable condition. At the end of the case all counts were correct. CASSANDRA MARIN MD Sep 25, 2020 13:22
--- NOTE | 2020-09-25 13:24 | DISCH ---
DISCHARGE INSTRUCTIONS Condition on Discharge Condition on Discharge: Stable Activity After Discharge Activity Instructions for Disc: Resume previous activity Diet after Discharge Diet after Discharge: Regular Wound Incision Care Wound/Incision Care: Other, see below (keep dressing clean and dry X 72 hours, may then remove and shower) Follow-Up Follow up with: Dr Marin in 2 weeks in office, call for appt [phone] CASSANDRA MARIN MD Sep 25, 2020 13:24
[2020-09-25] MEDS ORDERED: MORPHINE SULFATE 2 MG/ML VIAL. ONE (13:33)
[2020-09-25] MEDS ORDERED: HYDROcodone/APAP 5/325MG 1 TAB TABLET PO ONE (14:00)
[2020-09-25 14:11] VITALS: BP 123/62
== END 2020-09-25 14:30 | disposition home or self-care (01) ==
LOC: SURG 10:20
PROVIDERS: ATTEND Surgery
DX: Z45.2 Encounter for adjustment and management of vascular access device (principal); C50.911 Malignant neoplasm of unspecified site of right female breast; E11.42 Type 2 diabetes mellitus with diabetic polyneuropathy; G62.9 Polyneuropathy, unspecified; J45.909 Unspecified asthma, uncomplicated; K21.9 Gastro-esophageal reflux disease without esophagitis; M19.90 Unspecified osteoarthritis, unspecified site; Z88.8 Allergy status to other drugs, medicaments and biological substances; Z82.3 Family history of stroke; Z80.3 Family history of malignant neoplasm of breast; Z92.21 Personal history of antineoplastic chemotherapy; Z87.01 Personal history of pneumonia (recurrent); Z90.710 Acquired absence of both cervix and uterus; Z90.11 Acquired absence of right breast and nipple; Z90.721 Acquired absence of ovaries, unilateral; Z98.890 Other specified postprocedural states; Z86.2 Personal history of diseases of the blood and blood-forming organs and certain disorders involving the immune mechanism
CPT/HCPCS: 36590; J0690; J2270; J3010

== ENCOUNTER → 2020-12-25 | Outpatient (CLI) | payer OTHER ==
[~2020-12-25] MED LIST changes: -BUPIVACAINE-EPI 0.5%-1:200000 MPF 30 ML VIAL. INJ ONE; +GADOTERATE 5 MMOL/10ML VIAL. IVP ONE; -HYDROmorphone 2 MG/ML VIAL IV PRN; -IV RINGERS,LACTATED 1000ML 1,000 ML IV SCH; -MORPHINE SULFATE 2 MG/ML VIAL. IV PRN; -ONDANSETRON PF 4 MG/2 ML VIAL. IV PRN; -PROCHLORPERAZINE 10 MG/2 ML VIAL. IV PRN; -ceFAZolin SODIUM IV Push 1 GM VIAL. IVP PRN; -fentaNYL PF VIAL 100 MCG/2 ML VIAL IV PRN
--- NOTE | 2020-12-25 13:31 | RAD ---
MRI BRAIN WO+W Date: 12/25/2020 11:20 AM Indication: Reason: ALTERED LEARNING AND HEADACHES. Hx BREAST CANCER. 10mL CLARISCAN / Spl. Instru ctions: / History: Comparison: None. Technique: Multiplanar multisequence MRI of the brain was performed with and without intravenous cont rast using the standard protocol. 10 cc Clariscan contrast was administered intravenously during the exam. Findings: No acute infarct. No acute or chronic hemorrhage. The ventricles are normal in size and configuration without hydrocephalus. Minimal scattered FLAIR hyperintensities in the subcortical and periventricul ar deep white matter, a nonspecific finding, appropriate for patient age. No abnormal enhancement. The scalp and calvarium are normal. The pituitary and sella are normal. No Chiari malformation. The v isualized upper cervical spine is normal. The visualized orbits and globes are normal. Mild maxillary sinus mucosal thickening. The mastoid air cells are clear. Normal flow voids within the vertebral, basilar, and internal carotid arteries indicating patency. IMPRESSION: 1. No acute infarct or hemorrhage. 2. No mass or abnormal enhancement. Electronically signed by: Diego Marin MD (12/25/2020 1:28 PM) [id number]
== END ==
LOC: MRI 11:13
PROVIDERS: ATTEND Psychiatry & Neurology Child & Adolescent Psychiatry
DX: C50.511 Malignant neoplasm of lower-outer quadrant of right female breast (principal); Z17.0 Estrogen receptor positive status [ER+]
CPT/HCPCS: 70553; A9575